=== PATIENT | female | born 1950 | race Caucasian/White ===

== ENCOUNTER → 2017-10-04 | Outpatient (CLI) | payer MEDICARE, BC ==
--- NOTE | 2017-10-07 11:17 | MM ---
Reason for exam: screening (asymptomatic). Last mammogram was performed 1 year ago. History: Patient is postmenopausal. Family history of breast cancer in sister at age 52. Physical Findings: A clinical breast exam by your physician is recommended on an annual basis and results should be correlated with mammographic findings. MG Screening Mammo w CAD Bilateral CC and MLO view(s) were taken. Prior study comparison: September 20, 2016, bilateral MG screening mammo w CAD. July 15, 2015, bilateral MG screening mammo w CAD. The breast tissue is almost entirely fat. There is no discrete abnormality. No significant changes when compared with prior studies. ASSESSMENT: Negative, BI-RAD 1 RECOMMENDATION: Routine screening mammogram of both breasts in 1 year.
== END | disposition home or self-care (01) ==
LOC: RADMAMWWP 16:18
PROVIDERS: ATTEND Family Medicine
DX: Z12.31 Encounter for screening mammogram for malignant neoplasm of breast (principal)

== ENCOUNTER 2019-10-21 10:38 | Day surgery (SDC) | payer MEDICARE, OTHER ==
[~2019-10-21 10:38] MED LIST: LACTATED RINGERS 1,000 ML IV SCH
[2019-10-21 12:00] VITALS: TEMP 97.9
[2019-10-21] MEDS ORDERED: PROPOFOL 10 MG/ML 20 ML VIAL IV ONE (12:52)
--- NOTE | 2019-10-21 13:10 | P.PCN ---
Date of Procedure: 10/21/19 Procedure(s) Performed: BRIEF HISTORY: Patient is a 69-year-old pleasant female scheduled for an elective colonoscopy as a part of evaluation of Hemoccult-positive stool. PROCEDURE PERFORMED: Colonoscopy. PREOPERATIVE DIAGNOSIS: Hemoccult-positive stool. IV sedation per Anesthesia. PROCEDURE: After informed consent was obtained, the patient, was brought into the endoscopy unit. IV sedation was administered by Anesthesia under continuous monitoring. Digital rectal examination was normal. Initially the Olympus CF-160 flexible video colonoscope was then inserted in the rectum, gradually advanced into the cecum without any difficulty. Careful examination was performed as the scope was gradually being withdrawn. Ileocecal valve and the appendiceal orifice were visualized and appeared normal. Prep was excellent. Mucosa of the cecum, ascending colon, transverse colon, descending colon, sigmoid colon, and rectum appeared normal. Scattered sigmoidal diverticulosis. Retroflexion was performed in the rectum and no lesions were seen. The patient tolerated the procedure well. IMPRESSION: Normal-appearing colon from rectum to cecum with no evidence of colorectal neoplasia . Scattered sigmoid diverticulosis. RECOMMENDATIONS: Findings of this examination were discussed with the patient i s well as her family. She was advised to have a repeat screening colonoscopy in 10 years..
[2019-10-21 13:26] VITALS: BP 110/67; PULSE 89; RESP 18
== END 2019-10-21 13:41 | disposition home or self-care (01) ==
LOC: ORWHC2ENDO 10:38
PROVIDERS: ATTEND Internal Medicine Gastroenterology
DX: K57.31 Diverticulosis of large intestine without perforation or abscess with bleeding (principal); I10 Essential (primary) hypertension; I48.92 Unspecified atrial flutter; M19.90 Unspecified osteoarthritis, unspecified site; K21.9 Gastro-esophageal reflux disease without esophagitis; Z79.01 Long term (current) use of anticoagulants; Z79.899 Other long term (current) drug therapy
CPT/HCPCS: 45378; J2704

== ENCOUNTER → 2019-10-23 | Outpatient (CLI) | payer OTHER ==
--- NOTE | 2019-10-26 08:45 | MM ---
Reason for exam: screening (asymptomatic). Last mammogram was performed 1 year and 1 month ago. History: Patient is postmenopausal. Family history of breast cancer in sister at age 52. Took hormonal contraceptives for 4 years. Physical Findings: A clinical breast exam by your physician is recommended on an annual basis and results should be correlated with mammographic findings. MG Screening Mammo w CAD Bilateral CC and MLO view(s) were taken. Prior study comparison: October 06, 2018, bilateral MG screening mammo w CAD. October 04, 2017, bilateral MG screening mammo w CAD. There are scattered fibroglandular densities. There is no discrete abnormality. ASSESSMENT: Negative, BI-RAD 1 RECOMMENDATION: Routine screening mammogram of both breasts in 1 year.
== END ==
LOC: RADMAMWWP 11:09
PROVIDERS: ATTEND Family Medicine
DX: Z12.31 Encounter for screening mammogram for malignant neoplasm of breast (principal)
CPT/HCPCS: 77067

== ENCOUNTER → 2021-09-20 | Outpatient (CLI) | payer BC ==
--- NOTE | 2021-09-21 11:32 | MM ---
Reason for exam: screening (asymptomatic). Last mammogram was performed 1 year and 11 months ago. History: Patient is postmenopausal. Family history of breast cancer in sister at age 52. Took hormonal contraceptives for 4 years. Physical Findings: A clinical breast exam by your physician is recommended on an annual basis and results should be correlated with mammographic findings. MG Screening Mammo w CAD Bilateral CC, MLO, and XCCL view(s) were taken. Prior study comparison: October 23, 2019, bilateral MG screening mammo w CAD. October 06, 2018, bilateral MG screening mammo w CAD. There are scattered fibroglandular densities. There is no discrete abnormality. No significant changes when compared with prior studies. ASSESSMENT: Negative, BI-RAD 1 RECOMMENDATION: Routine screening mammogram of both breasts in 1 year.
== END | disposition home or self-care (01) ==
LOC: RADMAMWWP 11:52
PROVIDERS: ATTEND Nurse Practitioner
DX: Z12.31 Encounter for screening mammogram for malignant neoplasm of breast (principal); Z80.3 Family history of malignant neoplasm of breast
CPT/HCPCS: 77067

== ENCOUNTER 2021-11-16 11:52 | Emergency (ER) | payer BC ==
[2021-11-16 12:19] VITALS: BP 148/94; TEMP 98.4
[2021-11-16] MEDS ORDERED: IPRATROPIUM-ALBUTEROL 3 ML NEB INHALATION STA (13:13)
--- NOTE | 2021-11-16 13:18 | ED ---
General Adult HPI - General Chief complaint: Shortness of Breath Stated complaint: Cough/LEV Time Seen by Provider: 11/16/21 12:58 Source: patient, RN notes reviewed Mode of arrival: ambulatory Limitations: physical limitation - History of Present Illness Initial comments: 71-year-old female presents to the emergency department with complaints of congested cough and fatigue, worsening since Saturday, but has been an ongoing issue for months. She states she has been to urgent care twice and has had 2 negative Covid tests this week. States she was started on an oral steroid Saturday and has had minimal improvement. States at urgent care they expressed concern about possible Covid pneumonia despite negative tests. Has not taken any additional [id number] medicines. Patient denies fever, chills, headache, dizziness, chest pain, abdominal pain, nausea, vomiting, diarrhea, or dysuria.. - Related Data Home Medications Medication Instructions Recorded Confirmed Apixaban [Eliquis] 5 mg PO BID 10/20/19 11/16/21 Lansoprazole 30 mg PO DAILY 10/20/19 11/16/21 amLODIPine [Norvasc] 10 mg PO DAILY 11/16/21 11/16/21 predniSONE [Deltasone] 40 mg PO [id number] 11/16/21 11/16/21 Previous Rx's Medication Instructions Recorded Albuterol Sulfate [Proair Hfa] 1 - 2 puff INHALATION Q4HR PRN 11/16/21 #8.5 gm Ibuprofen [Motrin] 600 mg PO Q8HR PRN #30 tab 11/16/21 Allergies Allergy/AdvReac Type Severity Reaction Status Date / Time No Known Allergies Allergy Verified 11/16/21 15:41 Review of Systems ROS Statement: Those systems with pertinent positive or pertinent negative responses have been documented in the HPI. ROS Other: All systems not noted in ROS Statement are negative. Past Medical History Past Medical History: Atrial Flutter, GERD/Reflux, Hypertension, Osteoarthritis (OA) History of Any Multi-Drug Resistant Organisms: None Reported Past Surgical History: Bariatric Surgery, Cholecystectomy, Hernia Repair Additional Past Surgical History / Comment(s): LAP BAND. UMBILICAL HERNIA. Past Anesthesia/Blood Transfusion Reactions: Motion Sickness Past Psychological History: No Psychological Hx Reported Smoking Status: Never smoker Past Alcohol Use History: Rare Past Drug Use History: None Reported General Exam Limitations: physical limitation General appearance: alert, in no apparent distress, other (Well-developed, well- nourished female in no acute distress. Initial temperature 98.4, pulse 86, respirations 18, blood pressure 140/94, pulse ox 97% on room air.) ENT exam: Present: normal exam, normal oropharynx, mucous membranes moist Respiratory exam: Present: wheezes (Scattered expiratory wheezes throughout the lung cifuentes), other (Nonproductive cough). Absent: respiratory distress, rales, rhonchi, stridor, chest wall tenderness Cardiovascular Exam: Present: regular rate, normal rhythm, normal heart sounds. Absent: systolic murmur, diastolic murmur, rubs, gallop, clicks GI/Abdominal exam: Present: soft, normal bowel sounds. Absent: distended, tenderness, guarding, rebound, rigid Extremities exam: Present: normal inspection, full ROM, normal capillary refill. Absent: tenderness, pedal edema, joint swelling, calf tenderness Neurological exam: Present: alert, oriented X3, CN II-XII intact Psychiatric exam: Present: normal affect, normal mood Skin exam: Present: warm, dry, intact, normal color. Absent: rash Course Vital Signs 11/16/21 11/16/21 11/16/21 12:12 12:53 14:12 Temperature 98.4 F Pulse Rate 86 88 Respiratory 18 20 Rate Blood Pressure 148/94 O2 Sat by Pulse 97 Oximetry 11/16/21 11/16/21 14:25 15:34 Temperature Pulse Rate 88 54 L Respiratory 18 Rate Blood Pressure O2 Sat by Pulse 94 L Oximetry Medical Decision Making - Medical Decision Making 71-year-old female with a past medical history of hypertension and bariatric surgery, presents to the emergency department for evaluation of congested cough. Upon exam, patient has no increased work of breathing or shortness of breath. She is not tachypneic or febrile. Does have scattered expiratory wheezing throughout the lung cifuentes. Room air saturation is 95% or greater. Patient is currently taking an oral steroid as prescribed by urgent care. Chest x-ray was obtained and is unremarkable. Laboratory studies were reviewed. Influenza, RSV, and Covid are negative. Patient was supplemented with oral potassium for mild hypokalemia. The patient was given a DuoNeb with significant improvement. She will be discharged home to follow up with her primary care provider for a recheck. Prescribed an albuterol inhaler and instructed on its use. Also given Motrin for mild back pain associated with coughing. Return parameters were discussed in detail. Patient and family verbalized understanding and agreed with this plan. - Lab Data Result diagrams: 11/16/21 13:36 11/16/21 13:36 Lab Results 11/16/21 11/16/21 11/16/21 Range/Units 13:36 13:36 13:36 WBC 11.0 H (3.8-10.6) k/uL RBC 5.12 (3.80-5.40) m/uL Hgb 14.4 (11.4-16.0) gm/dL Hct 45.1 (34.0-46.0) % MCV 88.0 (80.0-100.0) fL MCH 28.2 (25.0-35.0) pg MCHC 32.0 (31.0-37.0) g/dL RDW 15.7 H (11.5-15.5) % Plt Count 268 (150-450) k/uL MPV 7.3 Neutrophils % (Manual) 75 % Lymphocytes % (Manual) 17 % Monocytes % (Manual) 8 % Neutrophils # (Manual) 8.25 H (1.3-7.7) k/uL Lymphocytes # (Manual) 1.87 (1.0-4.8) k/uL Monocytes # (Manual) 0.88 (0-1.0) k/uL Nucleated RBCs 0 (0-0) /100 WBC Manual Slide Review Performed RBC Morphology Normal Sodium 141 (137-145) mmol/L Potassium 3.4 L (3.5-5.1) mmol/L Chloride 103 (98-107) mmol/L Carbon Dioxide 30 (22-30) mmol/L Anion Gap 8 mmol/L BUN 12 (7-17) mg/dL Creatinine 0.66 (0.52-1.04) mg/dL Est GFR (CKD-EPI)AfAm >90 (>60 ml/min/1.73 sqM) Est GFR (CKD-EPI)NonAf >90 (>60 ml/min/1.73 sqM) Glucose 101 H (74-99) mg/dL Plasma Lactic Acid Clint 1.3 (0.7-2.0) mmol/L Calcium 8.9 (8.4-10.2) mg/dL Total Bilirubin 0.6 (0.2-1.3) mg/dL AST 45 H (14-36) U/L ALT 34 (4-34) U/L Alkaline Phosphatase 111 (38-126) U/L Total Protein 7.5 (6.3-8.2) g/dL Albumin 4.0 (3.5-5.0) g/dL Urine Color Urine Appearance (Clear) Urine pH (5.0-8.0) Ur Specific [place] (1.001-1.035) Urine Protein (Negative) Urine Glucose (UA) (Negative) Urine Ketones (Negative) Urine Blood (Negative) Urine Nitrite (Negative) Urine Bilirubin (Negative) Urine Urobilinogen (<2.0) mg/dL Ur Leukocyte Esterase (Negative) Influenza Type A (PCR) (Not Detectd) Influenza Type B (PCR) (Not Detectd) RSV (PCR) (Not Detectd) SARS-CoV-2 (PCR) (Not Detectd) 11/16/21 11/16/21 Range/Units 13:36 14:02 WBC (3.8-10.6) k/uL RBC (3.80-5.40) m/uL Hgb (11.4-16.0) gm/dL Hct (34.0-46.0) % MCV (80.0-100.0) fL MCH (25.0-35.0) pg MCHC (31.0-37.0) g/dL RDW (11.5-15.5) % Plt Count (150-450) k/uL MPV Neutrophils % (Manual) % Lymphocytes % (Manual) % Monocytes % (Manual) % Neutrophils # (Manual) (1.3-7.7) k/uL Lymphocytes # (Manual) (1.0-4.8) k/uL Monocytes # (Manual) (0-1.0) k/uL Nucleated RBCs (0-0) /100 WBC Manual Slide Review RBC Morphology Sodium (137-145) mmol/L Potassium (3.5-5.1) mmol/L Chloride (98-107) mmol/L Carbon Dioxide (22-30) mmol/L Anion Gap mmol/L BUN (7-17) mg/dL Creatinine (0.52-1.04) mg/dL Est GFR (CKD-EPI)AfAm (>60 ml/min/1.73 sqM) Est GFR (CKD-EPI)NonAf (>60 ml/min/1.73 sqM) Glucose (74-99) mg/dL Plasma Lactic Acid Clint (0.7-2.0) mmol/L Calcium (8.4-10.2) mg/dL Total Bilirubin (0.2-1.3) mg/dL AST (14-36) U/L ALT (4-34) U/L Alkaline Phosphatase (38-126) U/L Total Protein (6.3-8.2) g/dL Albumin (3.5-5.0) g/dL Urine Color Light Yellow Urine Appearance Clear (Clear) Urine pH 7.0 (5.0-8.0) Ur Specific [place] 1.010 (1.001-1.035) Urine Protein Negative (Negative) Urine Glucose (UA) Negative (Negative) Urine Ketones Negative (Negative) Urine Blood Negative (Negative) Urine Nitrite Negative (Negative) Urine Bilirubin Negative (Negative) Urine Urobilinogen <2.0 (<2.0) mg/dL Ur Leukocyte Esterase Negative (Negative) Influenza Type A (PCR) Not Detected (Not Detectd) Influenza Type B (PCR) Not Detected (Not Detectd) RSV (PCR) Not Detected (Not Detectd) SARS-CoV-2 (PCR) Not Detected (Not Detectd) - Radiology Data Radiology results: report reviewed, image reviewed Chest x-ray was obtained. Report was reviewed in its entirety. Impression per Dr. Lizama is no acute cardiopulmonary process. Disposition Clinical Impression: Viral bronchitis Disposition: HOME SELF-CARE Condition: Stable Instructions (If sedation given, give patient instructions): Albuterol (By breathing), Acute Bronchitis (ED) Additional Instructions: Continue taking oral steroid as prescribed by urgent care. Use albuterol inhaler for shortness of breath and wheezing. Take Motrin for body aches and/or fever. Follow-up with your primary care provider for a recheck in the next few days. Return to the emergency department with any new, worsening, or concerning symptoms. Prescriptions: Ibuprofen [Motrin] 600 mg PO Q8HR PRN #30 tab PRN Reason: Pain Albuterol Sulfate [Proair Hfa] 1 - 2 puff INHALATION Q4HR PRN #8.5 gm PRN Reason: difficulty in breathing Is patient prescribed a controlled substance at d/c from ED?: No Referrals: None,Stated [Primary Care Provider] - 1-2 days Time of Disposition: 15:30
--- NOTE | 2021-11-16 13:57 | XR ---
EXAMINATION TYPE: XR chest 2V DATE OF EXAM: 11/16/2021 COMPARISON: Chest x-ray 04/21/2012 HISTORY: Cough and dyspnea on exertion TECHNIQUE: Frontal and lateral views of the chest are obtained. FINDINGS: There is no focal air space opacity, pleural effusion, or pneumothorax seen. Patient is ro tated. Surgical clips are present in the right upper quadrant. Patient is post lap band. Aorta is den se. The cardiac silhouette size is within normal limits. The osseous structures are intact. IMPRESSION: No acute cardiopulmonary process.
[2021-11-16 14:06] LABS: ALT 34 U/L (4-34); AST 45 U/L (14-36); African American GFR (CKD) >90 (>60 ml/min/1.73 sqM); Alkaline Phosphatase 111 U/L (38-126); Anion Gap 8 mmol/L; Blood Urea Nitrogen 12 mg/dL (7-17); Calcium 8.9 mg/dL (8.4-10.2); Carbon Dioxide 30 mmol/L (22-30); Chloride 103 mmol/L (98-107); Glucose 101 mg/dL (74-99); Non-African American GFR(CKD) >90 (>60 ml/min/1.73 sqM); Potassium 3.4 mmol/L (3.5-5.1); Sodium 141 mmol/L (137-145); Total Bilirubin 0.6 mg/dL (0.2-1.3); Total Protein 7.5 g/dL (6.3-8.2)
[2021-11-16 14:08] LABS: HCT 45.1 % (34.0-46.0); HGB 14.4 gm/dL (11.4-16.0); MCH 28.2 pg (25.0-35.0); Mean Platelet Volume 7.3; Platelet Count 268 k/uL (150-450); RBC 5.12 m/uL (3.80-5.40); RDW 15.7 % (11.5-15.5)
[2021-11-16 14:19] LABS: Appearance,Urine Clear (Clear); Bilirubin,Urine Negative (Negative); Blood,Urine Negative (Negative); Color,Urine Light Yellow; Glucose,Urine (UA) Negative (Negative); Ketones,Urine Negative (Negative); Leukocyte Esterase,Urine Negative (Negative); Nitrite,Urine Negative (Negative); Protein,Urine Negative (Negative); Urobilinogen,Urine <2.0 mg/dL (<2.0)
[2021-11-16 14:31] LABS: Lymphocytes # (M) 1.87 k/uL (1.0-4.8); Monocytes # (M) 0.88 k/uL (0-1.0); Neutrophils # (M) 8.25 k/uL (1.3-7.7); Neutrophils % (M) 75 %; Nucleated Red Blood Cells 0 /100 WBC (0-0); Total Cells Counted 100
[2021-11-16] MEDS ORDERED: POTASSIUM CHLORIDE ER 20 MEQ TAB.ER PO STA (14:47)
[2021-11-16] MEDS ORDERED: IBUPROFEN 600 MG TAB PO STA (14:51)
[2021-11-16 15:35] VITALS: PULSE 54; RESP 18
== END 2021-11-16 15:35 | disposition home or self-care (01) ==
LOC: EC 11:52
DX: J20.8 Acute bronchitis due to other specified organisms (principal); I10 Essential (primary) hypertension; K21.9 Gastro-esophageal reflux disease without esophagitis; M19.90 Unspecified osteoarthritis, unspecified site; Z20.822 Contact with and (suspected) exposure to COVID-19; Z79.899 Other long term (current) drug therapy
CPT/HCPCS: 36415; 71046; 80053; 81003; 83605; 85025; 87636; 94640; 99285